=== PATIENT | male | born 1950 | race Caucasian/White ===

== ENCOUNTER 2024-09-15 23:26 | Emergency (ER) | payer MEDICARE ==
[2024-09-16 00:07] LABS: Anion Gap 17 mmol/L (10-20); BUN (Urea Nitrogen) 12 mg/dL (8.4-25.7); Calc. Creatinine Clearance 0 mL/min (70-130); Calcium 9.8 mg/dL (7.8-10.44); Carbon Dioxide 19 mmol/L (23-31); Chloride 107 mmol/L (98-107); Estimated GFR 97; Glucose 98 mg/dL (83-110); Sodium 139 mmol/L (136-145)
[2024-09-16] MEDS ORDERED: Sotalol HCl 80 MG TAB PO SCH (01:15)
== END 2024-09-16 01:11 | disposition home or self-care (01) ==
LOC: CSHERS 23:26
DX: I47.10 Supraventricular tachycardia, unspecified (principal); I10 Essential (primary) hypertension; E03.9 Hypothyroidism, unspecified; I48.91 Unspecified atrial fibrillation; Z79.890 Hormone replacement therapy; Z79.01 Long term (current) use of anticoagulants
CPT/HCPCS: 80048; 83735; 93005; 99285